=== PATIENT | female | born 2000 | race Caucasian/White ===

== ENCOUNTER 2019-01-10 18:51 | Inpatient (IN) ==
[2019-01-10] MEDS: Ringers Solution, Lactated 1,000 ML IVC SCH ×2 (15:03→16:46)
[2019-01-10 15:27] LABS: Amphetamine Screen,Urine Negative ng/mL (Cutoff=1000); Barbiturate Screen,Urine Negative ng/mL (Cutoff=200); Benzodiazepines Screen,Urine Negative ng/mL (Cutoff=200); Cannabinoid Screen,Urine Negative ng/mL (Cutoff = 50); Cocaine Screen,Urine Negative ng/mL (Cutoff= 300); Opiate Screen,Urine Negative ng/mL (Cutoff=300); Phencyclidine Screen,Urine Negative ng/mL (Cutoff=25)
[2019-01-10 15:57] LABS: Basophils % 0.2 %; Eosinophils # 0.1 K/mcL (0.0-0.6); Eosinophils % 0.5 %; Hemoglobin 11.9 g/dL (11.5-15.4); Immature Granulocytes % 0.4 % (0-4); Lymphocytes # 2.2 K/mcL (0.6-4.6); Lymphocytes % 21.8 %; Mean Corpuscular Hemoglobin 29.8 pg (28.0-33.3); Mean Corpuscular Volume 87.7 fL (83.0-100.0); Monocytes # 0.8 K/mcL (0.0-1.3); Monocytes % 7.9 %; Neutrophils # 6.9 K/mcL (1.6-8.9); Platelet Count 279 K/mcL (140-400); Red Blood Count 3.99 M/mcL (3.82-4.97); Red Cell Distribution Width 12.8 % (11.5-14.5); Segmented Neutrophils % 69.2 %; White Blood Count 9.9 K/mcL (4.3-11.1)
[~2019-01-10 18:51] MED LIST: *HR* Nalbuphine 10 MG/ML AMPUL IVP PRN; Azithromycin 500 MG in 0.9 % Sodium Chloride 250 ML IVPB ONE; Betamethasone Acet/SodPhos 30 MG/5 ML VIAL IM SCH; Epidural Premix (fent/bupiv) 110 ML EP SCH; Famotidine 20 MG/2 ML VIAL IVP PRN; Lidocaine 1% 20 ML MDV INFILT PRN; Metoclopramide 10 MG/2 ML VIAL IVP PRN; Naloxone 0.4 MG/ML INJ IVP PRN; Ondansetron 4 MG/2 ML VIAL IVP PRN; Penicillin G Potassium 5,000,000 UNIT in 0.9 % Sodium Chloride Mini Bag 100 ML IVPB ONE
[2019-01-10] MEDS ORDERED: *HR* Morphine Sulfate/PF 10 MG/10 ML AMPUL ONE (19:16)
[2019-01-10] MEDS ORDERED: *HR* FentaNYL (PF) 100 MCG/2 ML VIAL ONE (19:16)
[2019-01-10] MEDS ORDERED: EPHEDrine 50 MG/ML VIAL ONE (19:16)
[2019-01-10] MEDS ORDERED: *HR* Phenylephrine 10 MG/ML VIAL ONE (19:16)
[2019-01-10] MEDS ORDERED: Ringers Solution, Lactated 1,000 ML ONE (19:17)
[2019-01-10] MEDS ORDERED: CeFAZolin Premix DUPLEX 2,000 MG/50 ML BAG IVPB ONE (19:19)
[2019-01-10] MEDS ORDERED: *HR* OxyCODONE Immed Rel 5 MG TABLET PO PRN (19:43)
[2019-01-10] MEDS ORDERED: Acetaminophen IV 1,000 MG/100 ML INFUS..BTL IVPB ONE (19:43)
[2019-01-10] MEDS ORDERED: *HR* HYDROmorphone (PF) 1 MG/ML SYRINGE IVP PRN (19:43)
[2019-01-10] MEDS ORDERED: Penicillin G Potassium 2,500,000 UNIT in 0.9 % Sodium Chloride 100 ML IVPB SCH (20:00)
[2019-01-10] MEDS ORDERED: Ondansetron 4 MG/2 ML VIAL ONE (20:02)
[2019-01-10] MEDS ORDERED: Oxytocin 20 units/ LR 1000 mL 20 UNIT/1,000 ML BAG IVC SCH (23:19)
[2019-01-10] MEDS ORDERED: Metoclopramide 10 MG/2 ML VIAL IVP PRN (23:19)
[2019-01-10] MEDS ORDERED: Sennosides 8.6 MG TABLET PO PRN (23:19)
[2019-01-10] MEDS ORDERED: Rho Immune Globulin 1,500 UNIT SYRINGE IM ONE (23:19)
[2019-01-10] MEDS ORDERED: Simethicone 80 MG TAB.CHEW PO PRN (23:19)
[2019-01-10] MEDS ORDERED: Ondansetron 4 MG/2 ML VIAL IVP PRN (23:19)
[2019-01-11] MEDS: Ibuprofen 600 MG TABLET PO PRN ×2 (05:50→17:35)
[2019-01-11] MEDS: Prenatal Vit/FA 1 EACH TABLET PO SCH (07:46)
[2019-01-11 08:02] LABS: Basophils % 0.1 %; Hematocrit 28.3 % (35.3-44.9); Immature Granulocytes % 0.7 % (0-4); Lymphocytes # 1.4 K/mcL (0.6-4.6); Lymphocytes % 7.7 %; Mean Corpuscular HGB Conc 34.6 g/dL (31.6-35.5); Mean Corpuscular Hemoglobin 30.2 pg (28.0-33.3); Mean Corpuscular Volume 87.3 fL (83.0-100.0); Mean Platelet Volume 10.5 fL (9.4-12.4); Monocytes # 1.2 K/mcL (0.0-1.3); Monocytes % 6.7 %; Neutrophils # 15.5 K/mcL (1.6-8.9); Platelet Count 264 K/mcL (140-400); Red Blood Count 3.24 M/mcL (3.82-4.97); Red Cell Distribution Width 12.7 % (11.5-14.5); Segmented Neutrophils % 84.8 %
[2019-01-11 08:06] LABS: Hemoglobin 9.8 g/dL (11.5-15.4); White Blood Count 18.3 K/mcL (4.3-11.1)
[2019-01-11] MEDS: *HR* OxyCODONE/APAP 5/325 TABLET PO PRN ×2 (09:30→19:14)
[2019-01-12] MEDS: *HR* OxyCODONE/APAP 5/325 TABLET PO PRN ×3 (01:15→19:40)
[2019-01-12] MEDS: Ibuprofen 600 MG TABLET PO PRN ×4 (01:15→23:26)
[2019-01-12] MEDS: Prenatal Vit/FA 1 EACH TABLET PO SCH (08:41)
[2019-01-12] MEDS ORDERED: Lanolin 7 G OINT...G. TP PRN (19:49)
[2019-01-13] MEDS: Ibuprofen 600 MG TABLET PO PRN (06:22)
[2019-01-13] MEDS: *HR* OxyCODONE/APAP 5/325 TABLET PO PRN ×3 (06:22→11:22)
[2019-01-13 07:59] VITALS: BP 108/63
[2019-01-13] MEDS: Prenatal Vit/FA 1 EACH TABLET PO SCH (11:22)
== END 2019-01-13 12:00 | disposition home or self-care (01) | DRG 540 ==
LOC: 1NENULAB → 1NENUOBS 23:13
PROVIDERS: ADMIT Registered Nurse; ATTEND Registered Nurse